=== PATIENT | female | born 1960 | race Caucasian/White ===

== ENCOUNTER 2018-01-13 19:56 | Emergency (ER) | payer OTHER ==
[2018-01-13] MEDS ORDERED: fentaNYL 100 MCG/2 ML INJ ONE (20:02)
[2018-01-13] MEDS ORDERED: fentaNYL 100 MCG/2 ML INJ IVP ONE (20:02)
--- NOTE | 2018-01-13 21:07 | EDPHY ---
H & P Stated Complaint: fell on ice on r knee HPI/ROS: Chief complaint: Right knee injury History of present illness: This is a 57-year-old female with a history of osteoporosis brought to the emergency department by EMS for evaluation of a right knee injury. Patient was walking down stairs when she slipped, falling forward, hyperflexing her knee and landing onto it. Since then she has had severe pain and swelling. She is unable to move it. Any movement causes significant pain. She denies associated signs or symptoms including no open wounds. No abnormal coolness or paresthesias in the leg. Further no report by patient or EMS of trauma to other parts of the body. EMS has provided her with 10 mg of morphine IV. Review of systems: A 10 point review of systems was obtained and other than described above was negative. - Personal History Current Tetanus/Diphtheria Vaccine: Yes Current Tetanus Diphtheria and Acellular Pertussis (TDAP): Yes - Medical/Surgical History Hx Asthma: No Hx Chronic Respiratory Disease: No Hx Diabetes: No Hx Cardiac Disease: No Hx Renal Disease: No Hx Cirrhosis: No Hx Alcoholism: No Hx HIV/AIDS: No Hx Splenectomy or Spleen Trauma: No Other PMH: r knee surgery, low bone density - Social History Smoking Status: Never smoked - Physical Exam Exam: General Appearance: Alert, nontoxic Eyes: PERRLA Respiratory: Lungs clear to auscultation bilaterally Cardiovascular: Regular rate and rhythm. DP and PT pulses 2+. Gastrointestinal: Bowel sounds normal. Abdomen soft, nondistended, nontender. Neurological: Alert and oriented x4. Sensation intact in the right leg. Skin: Edema to the right knee. No open wounds. Musculoskeletal: Diffuse tenderness to the right knee. Is not range given pain and known trauma. Constitutional: Initial Vital Signs Temperature (C) 36.4 C 01/13/18 19:56 Heart Rate 75 01/13/18 19:56 Respiratory Rate 20 01/13/18 19:56 Blood Pressure 101/84 H 01/13/18 19:56 O2 Sat (%) 98 01/13/18 19:56 O2 Delivery Mode Nasal Cannula O2 (L/minute) 2 Allergies/Adverse Reactions: No Known Allergies Allergy (Unverified 01/13/18 20:07) Home Medications: Medication Instructions Recorded NK [No Known Home Meds] 01/13/18 Medical Decision Making - Diagnostics Imaging: I viewed and interpreted images myself ED Course/Re-evaluation: Patient is discussed with my secondary supervising physician Dr. Andrew Cheatham. Patient presents to the emergency department with EMS for a right knee injury. There is a severe fracture to the distal femur. The leg is neurovascularly intact. By history and physical exam no evidence of trauma to other parts of the body. Patient is a [facility] patient. I have consulted with them. They would like patient transferred to [facility]. Dr. Edna Lundberg will be the accepting physician. They request x-rays be texted over to the orthopedic team. They state this is a HIPPA compliant phone. I have discussed with the patient if I can send the x-rays this way and she has agreed to it. Patient is transferred by [facility]. EMTALA forms have been filled out. Patient has been informed of the plan and has voiced agreement with it. Differential Diagnosis: Included but not limited to contusion, sprain or strain, bony fracture, joint dislocation - Data Points Medications Given: Discontinued Medications Fentanyl (Sublimaze) 100 mcg IVP EDNOW ONE Stop: 01/13/18 20:03 Last Admin: 01/13/18 20:05 Dose: 100 mcg Departure - Departure Disposition: Acute Care [facility] Clinical Impression: Femur fracture, right Qualifiers: Encounter type: initial encounter Femur location: unspecified portion of femur Fracture type: closed Fracture morphology: unspecified fracture morphology Qualified Code(s): S72.91XA - Unspecified fracture of right femur, initial encounter for closed fracture Condition: Fair Referrals: Patient,NotPresent [Primary Care Provider] - As per Instructions
[2018-01-13 22:10] VITALS: BP 145/88; PULSE 63; RESP 16; TEMP 97.7; O2SAT 99
== END 2018-01-13 22:33 | disposition short-term general hospital (02) ==
DX: S72.401A Unspecified fracture of lower end of right femur, initial encounter for closed fracture (principal); W01.0XXA Fall on same level from slipping, tripping and stumbling without subsequent striking against object, initial encounter; Y99.8 Other external cause status; Y93.01 Activity, walking, marching and hiking
CPT/HCPCS: 96374; J3010; L3925